=== PATIENT | male | born 1930 | race Caucasian/White ===

== ENCOUNTER → 2021-03-06 | Outpatient (CLI) | payer MEDICARE ==
--- NOTE | 2021-03-06 13:56 | RAD ---
EXAMINATION: US ABDOMEN COMPLETE. Site ID: [id number] HISTORY: 89 years Male Reason: GENERALIZED ABD PAIN COMPARISON: None. TECHNIQUE: Ultrasound imaging of the liver, gallbladder, biliary tract, spleen, pancreas, kidneys, ao rta, and IVC was performed. FINDINGS: The pancreas visualized portions appear grossly unremarkable. The liver is 17.7 craniocaudally, at the upper limits of normal. Echogenicity of the hepatic parench yma is minimally increased and slightly heterogenous. No focal liver masses are identified. The por yfn vein is patent and demonstrates appropriate direction of flow. The CBD caliber is 7 mm. The gallbladder was removed. The right kidney measures 10, and the left kidney measures 10.2 in length. No hydronephrosis. No fo addie mass. Simple cyst in the right kidney, 4.5cm seen in lower pole. The spleen measures 9.5, normal. The abdominal aorta and IVC visualized portions appear grossly unremarkable. No significant fluid collection or ascites. IMPRESSION: No acute process. Electronically signed by: Vasquez Umana MD (03/06/2021 1:54 PM) [id number]
== END ==
LOC: US 08:23
PROVIDERS: ATTEND Family Medicine
DX: N28.1 Cyst of kidney, acquired (principal); Z90.49 Acquired absence of other specified parts of digestive tract
CPT/HCPCS: 76700

== ENCOUNTER → 2021-04-16 | Outpatient (CLI) | payer MEDICARE ==
--- NOTE | 2021-04-17 15:07 | KCIC ---
Study: XR HIP (WITH OR WITHOUT PELVIS)LEFT 1 VIEW Indication: Left hip pain. Comparison: None. Findings: Osteopenia. No acute fracture is identified. Minimal arthrosis at the hips for patient age with maint ained joint space height. Poorly assessed but advanced discogenic arthrosis at the lower lumbar spine . Impression: Minimal arthrosis at the hips. Disc space height loss at the lower lumbar spine as well as facet dege neration incompletely evaluated on the obtained views. Diffuse osteopenia. Electronically signed by: WILLIAM MURCIA MD (04/17/2021 3:05 PM) [facility]
== END ==
LOC: KCIC 15:41
PROVIDERS: ATTEND Family Medicine
DX: M16.0 Bilateral primary osteoarthritis of hip (principal); M85.88 Other specified disorders of bone density and structure, other site
CPT/HCPCS: 73501

== ENCOUNTER → 2021-06-03 | Outpatient (CLI) | payer MEDICARE ==
[~2021-06-03] MED LIST: ASCO100019 PO; CHOL2400 MC; HYDR-2765 PO; LEVO25TA4 PO; LIDO1ADH59 TP; MV-M1TAB8 PO; SIMV40TA18 PO; TAMS0.4C97 PO; TIZA4CAP PO; TOBR5DRO2 OS
--- NOTE | 2021-06-03 17:24 | RAD ---
MRI of the lumbar spine without contrast 06/03/2021 CLINICAL HISTORY: Lumbar radiculopathy. TECHNIQUE: Unenhanced T1-weighted and T2-weighted sagittal and axial and inversion recovery sagittal images of the lumbar spine were obtained. FINDINGS: Comparison study is dated 05/31/2014. Minimal S-shaped curvature of the thoracolumbar spine is seen. Degenerative signal changes are seen i nvolving all of the disks of the lumbar spine. Degenerative signal changes are seen within the marrow surrounding these discs. Loss of height of the L4-5 disc is noted. The conus medullaris is normal in morphology, position, and signal characteristics. At the L1-2 disc space there is a minimal generalized disc bulge. Degenerative changes are seen invol ving the facet joints bilaterally. These findings do not result in significant central spinal canal o r neural foraminal stenosis. At the L2-3 disc space there is a mild generalized disc bulge. This is eccentric to the right. Degene rative changes are seen involving the facet joints, right greater than left. There is mild ligamentum flavum hypertrophy bilaterally. There are small facet joint effusions bilaterally. These findings wh en combined result in moderate right lateral central spinal canal stenosis. No neural foraminal steno sis is seen. At the L3-4 disc space there is a mild generalized disc bulge. Degenerative changes are seen involvin g the facet joints bilaterally. There is mild ligament flavum hypertrophy bilaterally. These findings when combined do not result in significant central spinal canal or neural foraminal stenosis. At the L4-5 disc space is a moderate generalized disc bulge. Degenerative changes are seen involving the facet joints bilaterally. There is moderate ligament flavum hypertrophy bilaterally. There are sm all facet joint effusions bilaterally. These findings when combined do not result in significant cent ral spinal canal or neural foraminal stenosis. At the L5-S1 disc space there is a mild generalized disc bulge. Degenerative changes are seen involvi ng the facet joints bilaterally. There are small facet joint effusions bilaterally. There is mild lig ament flavum hypertrophy bilaterally. These findings when combined do not result in significant centr al spinal canal or neural foraminal stenosis. IMPRESSION: The changes of degenerative disc disease are seen throughout the lumbar spine. These find ings result in moderate right lateral central spinal canal stenosis at L2-3. No neural foraminal sten osis is seen. Electronically signed by: Claudio De La Torre MD (06/03/2021 5:22 PM) [id number]
== END ==
LOC: MRI 10:45
PROVIDERS: ATTEND Family Medicine
DX: M51.16 Intervertebral disc disorders with radiculopathy, lumbar region (principal); M51.27 Other intervertebral disc displacement, lumbosacral region; M47.817 Spondylosis without myelopathy or radiculopathy, lumbosacral region; G03.8 Meningitis due to other specified causes; M48.07 Spinal stenosis, lumbosacral region; M41.85 Other forms of scoliosis, thoracolumbar region
CPT/HCPCS: 72148

== ENCOUNTER → 2021-06-05 | Outpatient (CLI) | payer MEDICARE ==
[~2021-06-05] MED LIST changes: +DEXAMETHASONE PRES.FREE 10 MG/ML VIAL. ONE; +IOHEXOL 180 MG/ML 10 ML VIAL. ONE
--- NOTE | 2021-06-05 11:47 | PDOC ---
Progress Note - Pain Clinic Date of Service: DOS: DATE: 06/05/21 TIME: 11:43 Diagnosis: Dx: Lumbar radiculopathy with lumbar degenerative disc disease History or Present Illness: HPI: 89-year-old male returns for follow-up with complaints of low back and left lower extremity pain. Patient had MRI scan ordered after his last visit and we went over the results of that with him today showing significant degenerative changes throughout the lumbar spine with moderate right lateral central spinal canal stenosis at L2-3 degenerative disc space and generalized disc bulges at L3-4 L4-5 and L5-S1. Patient reports still significant pain low back left lower extremity posterior gluteus posterior lateral thigh lateral anterior thigh anteromedial thigh and posterior calf and lateral calf worse with walking standing changing positions patient reports pain is increased since his last visit is a 10 on scale 10 at all times average worst and least and is a 10 today patient scribes as severe and unbearable radiating shooting burning stabbing cramping into the foot on the left side on the top of the foot and toes as well. Patient reports no bowel or bladder incontinence reports is better with sitting or lying down but is waking her from sleep about once to twice a night patient reports he can usually reposition get back to sleep patient reports no bowel or bladder incontinence currently. Physical Exam: VS: Blood pressure is 120/74 pulse 71 respirations 18 temperature 98.0 F weight is 167 pounds. PE: PHYSICAL EXAMINATION: GENERAL: The patient is awake, alert, oriented, appropriate, very pleasant in demeanor, patient accompanied by his spouse. HEENT: Shows normocephalic, atraumatic. 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 Oral cavity: Mucous membranes moist and pink. Dentition is intact. NECK: Shows anterior throat supple without palpable lymphadenopathy noted. Swallow reflex symmetrical. CHEST: Shows normal on inspection. Breath sounds are clear bilaterally, distant but no rales or rhonchi. HEART: Shows S1, S2 clear. No murmurs auscultated. ABDOMEN: Soft, nontender, nondistended. No palpable organomegaly is noted. BACK: Shows spine grossly in the midline. Normal-appearing cervical lordotic curvature. There is moderately increased thoracic kyphosis, some flattening of the lumbar lordotic curvature. Lumbar paraspinous muscles show symmetrical on inspection, on palpation shows some moderate tenderness diffusely throughout the upper, middle and lower distribution of the paraspinous muscles without specific trigger points, without radiation of pain. The patient has good rotational motion of the lumbar spine, both laterally as well as extension and flexion without significant difficulty. No tenderness over the spinous processes, sacrum or sacroiliac regions. EXTREMITIES: Lower extremities show deep tendon reflexes 1+ in the patellar and tendo calcaneus tendons. Motor exam is 5 on a scale of 5 with right dorsiflexion, extension, quadriceps and hamstring flexion and 4/5 on the left. Peripheral pulses are 1+ posterior tibial. No peripheral edema is noted bilaterally. Lower extremities are warm and dry. SKIN: Shows warm and dry, good turgor. No edema. No sores, rashes or bruising throughout. Procedure: Procedure: Options were discussed with the patient. Patient's old chart reviews his current medication regimen updated current review of systems updated today as well. Proceed with a lumbar epidural steroid injection today with fluoroscopic guidance. Risks were discussed including but not limited to: Bleeding, infection, possibility of epidural hematoma and subsequent neurological compromise, dural puncture, headaches, spinal cord and/or nerve damage, side effects of steroid medication, and poor results regarding pain control. Patient understands and wished to proceed. Patient will return to the clinic in approximately 2 weeks for follow-up, was counseled as to return appointment, active level, and side effect to be aware of. Medication Injected: Med Injected: Procedure is lumbar epidural steroid injection under local anesthetic using sterile prep and drape at the L4-5 level using C-arm fluoroscopic guidance in both AP and lateral views medications injected is 20 mg dexamethasone +10mL preservative-free normal saline and 2 mL contrast- condition at discharge is stable patient tolerated procedure well had no complications. Condition at Discharge: Condition at Discharge: Condition at discharge stable, patient tolerated procedure well and had no complications. JOSH RODRIGUEZ MD Jun 05, 2021 11:47
--- NOTE | 2021-06-05 11:47 | PDOC4 ---
Procedure Note: ICD 10 Code: ICD 10 Code: M54.16 M51.36 Procedure Note: Patient was consented for lumbar epidural steroid injection with fluoroscopic guidance. Risks were discussed including but not limited to: Bleeding, infection, possibility of epidural hematoma and subsequent neurological compromise, dural puncture, headaches, spinal cord and/or nerve damage, side effects of steroid medication, and poor results regarding pain control. Patient understands and wished to proceed. Procedure is lumbar epidural steroid injection under local anesthetic using sterile prep and drape at the L4-5 level using C-arm fluoroscopic guidance in both AP and lateral views medications injected is 20 mg dexamethasone +10mL preservative-free normal saline and 2 mL contrast- condition at discharge is stable patient tolerated procedure well had no complications. JOSH RODRIGUEZ MD Jun 05, 2021 11:47
== END | disposition home or self-care (01) ==
LOC: PNCL 10:57
PROVIDERS: ATTEND Anesthesiology
DX: M51.16 Intervertebral disc disorders with radiculopathy, lumbar region (principal); Z79.899 Other long term (current) drug therapy
CPT/HCPCS: 62323; J1100; Q9965

== ENCOUNTER → 2021-06-19 | Outpatient (CLI) | payer MEDICARE ==
[~2021-06-19] MED LIST changes: -DEXAMETHASONE PRES.FREE 10 MG/ML VIAL. ONE; -IOHEXOL 180 MG/ML 10 ML VIAL. ONE
--- NOTE | 2021-06-19 14:08 | PDOC ---
Progress Note - Pain Clinic Date of Service: DOS: DATE: 06/19/21 TIME: 14:03 Diagnosis: Dx: Lumbar radiculopathy with lumbar degenerative disc disease History or Present Illness: HPI: 89-year-old male returns for follow-up status post lumbar epidural steroid injection x1. Patient reports about 70% improvement initially now down to about 50% overall but still doing well after his injection patient reports that the pain was decreased significantly has been increase his activity with greater ease and comfort and getting around with less loss of balance and feels overall improved although reports still significant pain in the low back and left lower extremity rating the posterior gluteus posterior thigh posterior calf lateral thigh anterior thigh medial thigh medial lower leg to the ankle. Patient still using his walker and has that with him today reports his pain is a 9 on scale 10 is worst average and least over the past week prior to that was doing much better patient reports he was unhappy that the pain is returning but for the time it was better it was significantly improved. Patient reports he still sleeping well at night does not generally bother him with a sitting or laying down but when he puts weight on his left leg the pain does return within a few minutes of walking or just standing still. Patient reports no bowel or bladder incontinence no loss of motor function in his leg felt stronger on the left side for the first 2 weeks but now is becoming more fatigued with activity. Patient reports no bowel or bladder incontinence. Patient continues to do stretching and strengthening exercises on his own as well as taking oral analgesics and using Lidoderm patch on the low back which he feels does help fairly significantly as well. Physical Exam: VS: Blood pressure is 124/67 pulse 67 respirations 18 temperature 90.0 F height 5 feet 6 inches weight is 1 6 6 pounds. PE: PHYSICAL EXAMINATION: GENERAL: The patient is awake, alert, oriented, appropriate, very pleasant in demeanor, patient accompanied by his HEENT: Shows normocephalic, atraumatic. Extraocular movements are intact and symmetrical. NECK: Shows anterior throat supple without palpable lymphadenopathy noted. Swallow reflex symmetrical. CHEST: Shows normal on inspection. Breath sounds are clear bilaterally. HEART: Shows S1, S2 clear. No murmurs auscultated. ABDOMEN: Soft, nontender, nondistended. No palpable organomegaly is noted. BACK: Shows spine grossly in the midline. Normal-appearing cervical lordotic curvature. There is moderately increased thoracic kyphosis, some flattening of the lumbar lordotic curvature. Lumbar paraspinous muscles show symmetrical on inspection, on palpation shows some moderate tenderness diffusely throughout the upper, middle and lower distribution of the paraspinous muscles, without specific trigger points, without radiation of pain. The patient has good rotational motion of the lumbar spine, both laterally as well as extension and flexion without significant difficulty. EXTREMITIES: Lower extremities show deep tendon reflexes 1+ in the patellar and tendo calcaneus tendons. Motor exam is 5 on a scale of 5 with right dorsiflexion, extension, quadriceps and hamstring flexion and 4/5 on the left. Peripheral pulses are 1+ posterior tibial. No peripheral edema is noted bilaterally. Lower extremities are warm and dry to touch, equal in color and ap pearance. SKIN: Shows warm and dry, good turgor. No edema. No sores, rashes or bruising throughout. Procedure: Procedure: Options were discussed with the patient. Patient's old chart was reviewed as his current medication regimen updated current review of systems updated today as well. We will preauthorize patient for a second lumbar epidural steroid injections did very well with the first injection pain returning now but still about 50% improved overall with pain in the low back and left lower extremity still following the L4-5 dermatomal distribution. Patient continue with stretching strengthening exercise as well as oral analgesics and lidocaine patches. Once approved, patient will return to the clinic for lumbar epidural steroid injection translaminar approach at the L4-5 level with fluoroscopic guidance. Medication Injected: Med Injected: None Condition at Discharge: Condition at Discharge: Condition at discharge is stable. JOSH RODRIGUEZ MD Jun 19, 2021 14:08
== END | disposition home or self-care (01) ==
LOC: PNCL 13:31
PROVIDERS: ATTEND Anesthesiology
DX: M51.16 Intervertebral disc disorders with radiculopathy, lumbar region (principal); Z79.899 Other long term (current) drug therapy
CPT/HCPCS: 99212; G0463

== ENCOUNTER → 2021-07-03 | Outpatient (CLI) | payer MEDICARE ==
[~2021-07-03] MED LIST changes: +DEXAMETHASONE PRES.FREE 10 MG/ML VIAL. ONE; +IOHEXOL 180 MG/ML 10 ML VIAL. ONE
--- NOTE | 2021-07-03 13:42 | PDOC ---
Progress Note - Pain Clinic Date of Service: DOS: DATE: 07/03/21 TIME: 13:39 Diagnosis: Dx: Lumbar radiculopathy with lumbar degenerative disc disease History or Present Illness: HPI: 89-year-old male returns for follow-up status post lumbar epidural to injection x1. Patient reports about 50% improvement overall initially about 70% with pain returning low back the left lower extremity posterior gluteus lateral thigh anterior thigh medial thigh medial lower leg medial calf and into the posterior calf as well on the left side only. Patient reports is worse with walking standing, changing positions and especially in the morning it is worse patient reports is an 8 at all times average worst and least over the past week and is an 8 today patient scribes shooting on and off in intensity aching and dull in the posterior gluteus as well as the lateral thigh and into the lower leg patient reports it is better with sitting or lying down does not generally awaken her from sleep at night. Patient reports no bowel or bladder incontinen ce. Physical Exam: VS: Blood pressure is 126/80 pulse 69 respirations 18 temperature 90.2 F height 5 feet 6 inches weight 165 pounds. PE: PHYSICAL EXAMINATION: GENERAL: The patient is awake, alert, oriented, appropriate, very pleasant in demeanor HEENT: Shows normocephalic, atraumatic. Extraocular movements are intact and s ymmetrical. Oral cavity: Mucous membranes moist and pink. NECK: Shows anterior throat supple without palpable lymphadenopathy noted. Swallow reflex symmetrical. CHEST: Shows normal on inspection. Breath sounds are clear bilaterally, distant but no rales or rhonchi. HEART: Shows S1, S2 clear. No murmurs auscultated. ABDOMEN: Soft, nontender, nondistended. No palpable organomegaly is noted. BACK: Shows spine grossly in the midline. Normal-appearing cervical lordotic curvature. There is slightly increased thoracic kyphosis, some flattening of the lumbar lordotic curvature. Lumbar paraspinous muscles show symmetrical on inspection, on palpation shows some moderate tenderness diffusely throughout the upper, middle and lower distribution of the paraspinous muscles without specific trigger points, without radiation of pain. The patient has good rotational motion of the lumbar spine, both laterally as well as extension and flexion without significant difficulty. EXTREMITIES: Lower extremities show deep tendon reflexes 1+ in the patellar and tendo calcaneus tendons. Motor exam is 5 on a scale of 5 with right dorsiflexion, extension, quadriceps and hamstring flexion and 4/5 on the left. Peripheral pulses are 1+ posterior tibial. No peripheral edema is noted bilaterally. Lower extremities are warm and dry. SKIN: Shows warm and dry, good turgor. No edema. No sores, rashes or bruising throughout. Procedure: Procedure: Options were discussed with patient. Patient's old chart was reviewed as was his current medication regimen updated, and current review of systems updated today as well. We will proceed with a lumbar epidural steroid injection today with fluoroscopic guidance. Risks were discussed including but not limited to: Bleeding, infection, possibility of epidural hematoma and subsequent neurological compromise, dural puncture, headaches, spinal cord and/or nerve damage, side effects of steroid medication, and poor results regarding pain control. Patient understands and wished to proceed. Patient will return to clinic in approximately 2 weeks for follow-up, was counseled as to return appointment, active level, and side effect to be aware of. Medication Injected: Med Injected: Procedure is lumbar epidural steroid injection under local anesthetic using sterile prep and drape at the L4-5 level using C-arm fluoroscopic guidance in both AP and lateral views medications injected is 20 mg dexamethasone +10mL preservative-free normal saline and 2 mL contrast- condition at discharge is stable patient tolerated procedure well had no complications. Condition at Discharge: Condition at Discharge: Condition at discharge stable, paced tolerated procedure well and had no complications. JOSH RODRIGUEZ MD Jul 03, 2021 13:42
--- NOTE | 2021-07-03 13:42 | PDOC4 ---
Procedure Note: ICD 10 Code: ICD 10 Code: M54.16 M51.36 Procedure Note: Patient was consented for lumbar epidural steroid injection with fluoroscopic guidance. Risks were discussed including but not limited to: Bleeding, infection, possibility of epidural hematoma and subsequent neurological compromise, dural puncture, headaches, spinal cord and/or nerve damage, side effects of steroid medication, and poor results regarding pain control. Patient understands and wished to proceed. Procedure is lumbar epidural steroid injection under local anesthetic using sterile prep and drape at the L4-5 level using C-arm fluoroscopic guidance in both AP and lateral views medications injected is 20 mg dexamethasone +10mL preservative-free normal saline and 2 mL contrast- condition at discharge is stable patient tolerated procedure well had no complications. JOSH RODRIGUEZ MD Jul 03, 2021 13:42
== END | disposition home or self-care (01) ==
LOC: PNCL 13:03
PROVIDERS: ATTEND Anesthesiology
DX: M51.16 Intervertebral disc disorders with radiculopathy, lumbar region (principal); Z79.899 Other long term (current) drug therapy
CPT/HCPCS: 62323; J1100; Q9965

== ENCOUNTER → 2021-07-17 | Outpatient (CLI) | payer MEDICARE ==
[~2021-07-17] MED LIST changes: -DEXAMETHASONE PRES.FREE 10 MG/ML VIAL. ONE; -IOHEXOL 180 MG/ML 10 ML VIAL. ONE
--- NOTE | 2021-07-17 14:23 | PDOC ---
Progress Note - Pain Clinic Date of Service: DOS: DATE: 07/17/21 TIME: 14:20 Diagnosis: Dx: Lumbar radiculopathy with lumbar degenerative disc disease History or Present Illness: HPI: 89-year-old male returns for follow-up status post lumbar epidural steroid injection x2. Patient reports about 50% improvement overall with the pain in the left leg is changed now and is much more noticeable in the lateral thigh medial thigh and in the lateral lower leg patient reports the lateral lower leg is the main complaint today and he is having severe pain over the past several days not result of any recent injury or accident that he is aware but is aching and burning in the back as well as constant in the leg patient reports worse with walking standing changing positions better with sitting or laying down generally does not awaken her from sleep at night but has over the past few days once or twice patient can generally reposition and get back to sleep. Patient still using walker to ambulate reports no new motor or sensory deficits but significant increase in pain in the left lateral aspect of the lower leg. Patient reports no bowel or bladder incontinence no loss of motor function but significant fatigue weakness in the left lower extremity as noted. Patient continues to do stretching and strength exercises and is walking daily despite the pain he does keep his walker with him at all times. Physical Exam: VS: Blood pressure is 112/66 pulse 53 respirations 18 temperature 90.1 F height 5 feet 6 inches weight is 163 pounds. PE: PHYSICAL EXAMINATION: GENERAL: The patient is awake, alert, oriented, appropriate, very pleasant in demeanor, patient companied by his . HEENT: Shows normocephalic, atraumatic. Extraocular movements are intact and symmetrical. Oral cavity: Mucous membranes moist and pink. NECK: Shows anterior throat supple without palpable lymphadenopathy noted. Swallow reflex symmetrical. CHEST: Shows normal on inspection. Breath sounds are clear bilaterally. HEART: Shows S1, S2 clear. No murmurs auscultated. ABDOMEN: Soft, nontender, nondistended. No palpable organomegaly is noted. No rebound or guarding demonstrated. BACK: Shows spine grossly in the midline. Normal-appearing cervical lordotic curvature. There is moderatly increased thoracic kyphosis, some flattening of the lumbar lordotic curvature. Lumbar paraspinous muscles show symmetrical on inspection, on palpation shows some moderate tenderness diffusely throughout the upper, middle and lower distribution of the paraspinous muscles, without specific trigger points, without radiation of pain. The patient has good rotational motion of the lumbar spine, both laterally as well as extension and flexion without significant difficulty. EXTREMITIES: Lower extremities show deep tendon reflexes 1+ in the patellar and tendo calcaneus tendons. Motor exam is 5 on a scale of 5 with right d orsiflexion, extension, quadriceps and hamstring flexion and 4/5 on the left. Peripheral pulses are 1+ posterior tibial. No peripheral edema is noted bilaterally. Lower extremities are warm and dry to touch, equal in color and appearance. SKIN: Shows warm and dry, good turgor. No edema. No sores, rashes or bruising throughout. Procedure: Procedure: Options discussed with the patient. Patient's old chart was reviewed as his current medication regimen updated current review of systems updated today as well. We will proceed with preauthorization for left L4-5 transforaminal injection with fluoroscopic guidance. As patient has change in symptoms and more significantly following an L4-5 dermatomal distribution of pain in the left lower extremity. Once preauthorized patient will return for left L4-5 transforaminal injection with fluoroscopic guidance. In the meantime, patient will continue with stretching strength exercise as well as walking daily and oral analgesics as currently. Medication Injected: Med Injected: None Condition at Discharge: Condition at Discharge: Condition at discharge is stable. JOSH RODRIGUEZ MD Jul 17, 2021 14:23
== END | disposition home or self-care (01) ==
LOC: PNCL 13:11
PROVIDERS: ATTEND Anesthesiology
DX: M51.16 Intervertebral disc disorders with radiculopathy, lumbar region (principal); Z79.899 Other long term (current) drug therapy
CPT/HCPCS: 99212; G0463

== ENCOUNTER → 2021-07-31 | Outpatient (CLI) | payer MEDICARE ==
[~2021-07-31] MED LIST changes: +BUPIVACAINE MPF 0.25% 10 ML VIAL. ONE; +DEXAMETHASONE PRES.FREE 10 MG/ML VIAL. ONE; +IOHEXOL 180 MG/ML 10 ML VIAL. ONE
--- NOTE | 2021-07-31 14:01 | PDOC ---
Progress Note - Pain Clinic Date of Service: DOS: DATE: 07/31/21 TIME: 13:54 Diagnosis: Dx: Lumbar radiculopathy with lumbar degenerative disc disease History or Present Illness: HPI: 89-year-old male returns for follow-up status post lumbar epidural steroid injection x2. Patient reports about 50% improvement initially but the pain returning now and is more significant in the left lower extremity than it has been previously when it was in both lower extremities, and is isolated only to the left leg now and the low back patient reports no longer has any pain on the right side but has significant pain in the left side posterior gluteus posterior lateral thigh lateral anterior thigh anteromedial thigh medial lower leg and some in the calf on the left leg as well patient reports that sharp pain in the back sharp pain in the leg shooting severe tingling and burning in the leg as well as radiating and can be constant with weightbearing. Patient reports is much better with sitting or laying down generally does not have any pain with either of those activities and is not awakening from sleep at night. Patient reports pain is a 10 on scale 10 is worst least and average is a 10 today. Patient reports no bowel or bladder, no loss of motor function. Physical Exam: VS: Blood pressure is 126/69 pulse 67 respirations 18 temperature 98.3 F height is 5 feet 6 inches weight 162 pounds PE: PHYSICAL EXAMINATION: GENERAL: The patient is awake, alert, oriented, appropriate, very pleasant in demeanor HEENT: Shows normocephalic, atraumatic. Extraocular movements are intact and symmetrical. NECK: Shows anterior throat supple without palpable lymphadenopathy noted. Swallow reflex symmetrical. CHEST: Shows normal on inspection. Breath sounds are clear bilaterally. HEART: Shows S1, S2 clear. No murmurs auscultated. ABDOMEN: Soft, nontender, nondistended. No palpable organomegaly is noted. BACK: Shows spine grossly in the midline. Normal-appearing cervical lordotic curvature. There is moderately increased thoracic kyphosis, some flattening of the lumbar lordotic curvature. Lumbar paraspinous muscles show symmetrical on inspection, on palpation shows some moderate tenderness diffusely throughout the upper, middle and lower distribution of the paraspinous muscles without specific trigger points, without radiation of pain. The patient has good rotational motion of the lumbar spine, both laterally as well as extension and flexion without significant difficulty. EXTREMITIES: Lower extremities show deep tendon reflexes 1+ in the patellar and tendo calcaneus tendons. Motor exam is 5 on a scale of 5 with right dorsif lexion, extension, quadriceps and hamstring flexion and 4/5 on the left. Peripheral pulses are 1+ posterior tibial. No peripheral edema is noted bilaterally. Lower extremities are warm and dry to touch, equal in color and appearance. SKIN: Shows warm and dry, good turgor. No edema. No sores, rashes or bruising throughout. Procedure: Procedure: Options were discussed with the patient. Patient's old chart was reviewed his current medication regimen updated current review of systems updated today as well. We will proceed with a left-sided L4-5 transforaminal injection today with fluoroscopic guidance. Risks were discussed including but not limited to: Bleeding, infection, possibility of epidural hematoma and subsequent neurological compromise, potential injection of the vertebral artery at that level and permanent ischemic damage, dural puncture, headaches, spinal cord and/or nerve damage, side effects of steroid medication, and poor results regarding pain control. Patient understands and wished to proceed. Patient return to the clinic in approximately 2 weeks for follow-up, was counseled as to return appointment, active level, and side effects to be aware of. Medication Injected: Med Injected: Under sterile prep and drape patient was placed in prone position using C-arm fluoroscopic guidance to identify the L4-5 distribution oblique and slightly cephalad angled C arm. The left L4-5 target was identified and using lidocaine for anesthetizing the skin 22-gauge Glenn pencil point needle was then used to enter the skin and into the subcutaneous tissues using direct C-arm fluoroscopic guidance to guide the needle into the transforaminal aspect of the left 4 5 vertebrae this was confirmed with lateral views showing the needle tip in the superior aspect of the paravertebral region. Aspiration was noted to be negative, -1.5 cc of contrast was then injected with good spread both medially into the epidural space as well as laterally along the nerve root without uptake and without distribution and uptake on digital subtraction. At this time, a solution containing 2 cc of 0.25% bupivacaine and 20 mg dexamethasone was then injected. Needle was withdrawn and sterile bandage was applied. Patient t olerated procedure well had no immediate complications Condition at Discharge: Condition at Discharge: Condition at discharge stable, paced tolerated procedure well and had no complications. JOSH RODRIGUEZ MD July 31, 2021 14:01
--- NOTE | 2021-07-31 14:02 | PDOC4 ---
Procedure Note: ICD 10 Code: ICD 10 Code: M54.16 M51.36 Procedure Note: Patient is consented for left L4-5 transforaminal epidural steroid injection with fluoroscopic guidance. Risks were discussed including but not limited to: Bleeding, infection, possibility of epidural hematoma and subsequent neurological compromise, dural puncture, headaches, spinal cord and/or nerve damage, potential injection of vertebral artery at level and permanent ischemic damage, side effects of steroid medication, and poor results regarding pain control. Patient understands and wished to proceed. Under sterile prep and drape patient was placed in prone position using C-arm fluoroscopic guidance to identify the L4-5 distribution oblique and slightly cephalad angled C arm. The left L4-5 target was identified and using lidocaine for anesthetizing the skin 22-gauge Glenn pencil point needle was then used to enter the skin and into the subcutaneous tissues using direct C-arm fluoroscopic guidance to guide the needle into the transforaminal aspect of the left 4 5 vertebrae this was confirmed with lateral views showing the needle tip in the superior aspect of the paravertebral region. Aspiration was noted to be negative, -1.5 cc of contrast was then injected with good spread both medially into the epidural space as well as laterally along the nerve root without uptake and without distribution and uptake on digital subtraction. At this time, a solution containing 2 cc of 0.25% bupivacaine and 20 mg dexamethasone was then injected. Needle was withdrawn and sterile bandage was applied. Patient tolerated procedure well had no immediate complications JOSH RODRIGUEZ MD July 31, 2021 14:02
== END | disposition home or self-care (01) ==
LOC: PNCL 12:50
PROVIDERS: ATTEND Anesthesiology
DX: M51.16 Intervertebral disc disorders with radiculopathy, lumbar region (principal); Z79.899 Other long term (current) drug therapy
CPT/HCPCS: 64483; J1100; J3490; Q9965